=== PATIENT | female | born 1990 | race Hispanic/Latino ===

== ENCOUNTER 2021-10-21 22:16 | Emergency (ER) | payer OTHER ==
[~2021-10-21] VITALS: Ht 149.9 cm; Wt 72.1 kg
[2021-10-22 00:32] LABS: APPEARANCE,URINE Clear (CLEAR); BILIRUBIN,URINE Negative (NEGATIVE); COLOR,URINE Yellow (YELLOW); GLUCOSE, URINE (UA) Negative (NEGATIVE); KETONES,URINE Negative (NEGATIVE); LEUKOCYTE ESTERASE ,URINE Trace (NEGATIVE); NITRATE,URINE Negative (NEGATIVE); OCCULT BLOOD,URINE Negative (NEGATIVE); PROTEIN,URINE Negative (NEGATIVE)
[2021-10-22 00:36] LABS: BACTERIA,URINE Rare /HPF (None Seen); MUCUS,URINE Many LPF (None Seen); RBC,URINE None Seen /HPF (0-1); SQUAMOUS EPITHELIAL CELL,UR Moderate /HPF (0-2); WBC,URINE None Seen /HPF (0-1)
[2021-10-22 01:35] LABS: BASOPHILS % (AUTO) 0.4 % (0.0-5.0); EOSINOPHILS % (AUTO) 1.8 % (0.0-8.0); HEMATOCRIT 41.4 % (36-48); LYMPHOCYTES % (AUTO) 37.2 % (21.0-51.0); MEAN CORPUSCULAR HEMOGLOBIN 32.1 pg (27.0-33.0); MEAN CORPUSCULAR HGB CONC 34.5 g/dL (32.0-36.0); MONOCYTES % (AUTO) 6.3 % (3.0-13.0); NEUTROPHILS % (AUTO) 53.9 % (40.0-77.0); PLATELET COUNT (AUTO) 313 K/uL (130-400); RED BLOOD CELL COUNT(AUTO) 4.45 MIL/uL (4.00-5.50); RED CELL DISTRIBUTION WIDTH 11.9 % (11.0-15.5); WHITE BLOOD COUNT (AUTO) 10.3 K/uL (4.8-10.8)
[2021-10-22 01:45] LABS: CREATININE 0.7 mg/dL (0.5-1.5); POTASSIUM 3.6 mmol/L (3.5-5.1)
[2021-10-22 03:02] VITALS: BP 147/85
== END 2021-10-22 03:03 | disposition home or self-care (01) ==
LOC: EDH 22:16
DX: F41.9 Anxiety disorder, unspecified (principal); R07.89 Other chest pain; R11.0 Nausea
CPT/HCPCS: 36415; 80048; 81001; 81025; 82550; 84484; 85025; 93005

== ENCOUNTER 2025-04-12 16:13 | Inpatient (IN) | payer SELFPAY ==
[~2025-04-12] VITALS: Ht 149.9 cm; Wt 73.2 kg
[2025-04-12 17:02] LABS: IMMATURE GRANULOCYTE ABSOLUTE 0.07 K/uL (0-1); NUCLEATED RED BLOOD CELLS 0.0 % (0.0-0.19); PLATELET COUNT (AUTO) 258 K/uL (130-400); RED BLOOD CELL COUNT(AUTO) 4.02 MIL/uL (4.00-5.50); RED CELL DISTRIBUTION WIDTH 12.2 % (11.0-15.5); WHITE BLOOD COUNT (AUTO) 15.5 K/uL (4.8-10.8)
[2025-04-12] MEDS: 0.9%NACL 1000ML 2,178 ML IV SCH (17:04)
[2025-04-12 17:14] LABS: CREATININE 0.5 mg/dL (0.5-1.0); GLOMERULAR FILTR. RATE CALC 125.0 mL/min (>90); GLUCOSE,RANDOM 95.0 mg/dL (70-105); SODIUM SERUM 138.0 mmol/L (136-145); UREA NITROGEN, BLOOD 11.0 mg/dL (7-18)
[2025-04-12 17:26] LABS: CREATINE KINASE, TOTAL 69.0 U/L (21-232); HCG,QUANTITATIVE 0.0 mIU/mL (0-5)
[2025-04-12 18:45] LABS: APPEARANCE,URINE CLEAR (CLEAR); GLUCOSE, URINE (UA) NEGATIVE (NEGATIVE); LEUKOCYTE ESTERASE ,URINE NEGATIVE Leu/uL (NEGATIVE); NITRATE,URINE NEGATIVE (NEGATIVE); OCCULT BLOOD,URINE +- (TRACE) (NEGATIVE)
[2025-04-12 18:47] LABS: ADD UA MICROSCOPIC YES
[2025-04-12 18:52] LABS: SQUAMOUS EPITHELIAL CELL,UR MOD /HPF (0-2)
[2025-04-12 19:16] VITALS: TEMP 99
--- NOTE | 2025-04-12 20:48 | ERN ---
ED Note History of Present Illness Stated Complaint: BLOOD IN URINE,MULTIPLE Chief Complaint: Blood in Urine: Time Seen by MD: 16:28 Time Seen by Midlevel: 16:30 Dictation: 34-year-old female with a history of diabetes coming in with complaints of left lower quadrant pain onset for two days. Patient states he also has bilateral lower back pain, fever, nausea and vomiting. LMP is 04/05/2025. Allergies: Coded Allergies: No Known Drug Allergies (Unverified Allergy, Unknown, 10/21/21) Home Meds No Active Prescriptions or Reported Meds Past Medical History Past Medical History: No Pertinent History Surgical History: None Social History: ETOH Review of System Dictation Constitutional: Negative for fever,chills, and weight loss Eyes: Negative for injury, pain,redness, and discharge ENT: Negative for injury,pain or swelling Cardiovascular: Negative for chest pain, palpitations, and edema Respiratory: Negative for shortness of breath, cough, and wheezing, Abdomen/GI: Complaining of left lower quadrant pain with nausea and vomiting Back: Negative for injury and pain : Negative for injury, bleeding and discharge MS/Extremity: Negative for injury and deformity Skin: Negative for rash, and discoloration Neuro: Negative for headache, weakness, numbness, tingling, and seizure Psych: Negative for suicide ideation, homicidal ideation, and hallucinations Review of Systems: was completed Initial Vital Sign VS Vital Signs Date Time Temp Pulse Resp B/P (MAP) Pulse Ox O2 Delivery O2 Flow Rate FiO2 04/12/25 16:21 100.6 145 20 140/80 99 Room Air 0 04/12/25 18:53 21 Physical Exam Dictation General: awake, alert, NAD Head/Face: Normocephalic, atraumatic Eyes: PERRL, EOMI, vision at baseline ENT: oral cavity clear, TMs clear, no signs of infection Neck: Trachea midline, supple, no nuchal rigidity Cardiovascular: RRR, normal S1/S2, No MRGs, no JVD Respiratory: CTAB, no respiratory distress, No rales or wheezes Abdomen: Soft, mild left lower quadrant pain on palpation, non-distended, normal bowel sounds, no guarding or rebound. Skin: Warm, dry, normal turgor, no rash MS/Extremity: Pulses equal, no cyanosis, neurovascular intact, FROM Neuro: COAx4, GCS 15, strength 5/5, CN 2-12 intact, normal cerebellar exam, normal gait, Psych: Normal behavior, mood, and affect normal Pelvic exam done. There is scant amount of blood in the vaginal canal, no pain, did a bimanual, no chandelier sign. No pain on palpating bilateral ovaries. Patient states she is aware that she has of fibroids uterus Results (Laboratory/Radiology) Laboratory/Radiology Laboratory Tests Test 04/12/25 16:50 04/12/25 18:17 White Blood Count 15.5 K/uL (4.8-10.8) H Red Blood Count 4.02 MIL/uL (4.00-5.50) Hemoglobin 13.2 g/dL (12.0-16.0) Hematocrit 37.2 % (36-48) Mean Corpuscular Volume 92.5 fL (79-99) Mean Corpuscular Hemoglobin 32.8 pg (27.0-33.0) Mean Corpuscular Hemoglobin Concent 35.5 g/dL (32.0-36.0) Red Cell Distribution Width 12.2 % (11.0-15.5) Platelet Count 258 K/uL (130-400) Mean Platelet Volume 11.1 fL (7.5-10.5) H Immature Granulocyte % (Auto) 0.5 % (0-1) Neutrophils (%) (Auto) 76.2 % (40.0-77.0) Lymphocytes (%) (Auto) 13.4 % (21.0-51.0) L Monocytes (%) (Auto) 8.9 % (3.0-13.0) Eosinophils (%) (Auto) 0.8 % (0.0-8.0) Basophils (%) (Auto) 0.2 % (0.0-5.0) Neutrophils # (Auto) 11.8 K/uL (1.8-7.7) H Lymphocytes # (Auto) 2.1 K/uL (1.0-4.8) Monocytes # (Auto) 1.4 K/uL (0.1-1.0) H Eosinophils # (Auto) 0.12 K/uL (0.00-0.70) Basophils # (Auto) 0.03 K/uL (0.00-0.20) Absolute Immature Granulocyte (auto 0.07 K/uL (0-1) Nucleated Red Blood Cells 0.0 % (0.0-0.19) Sodium Level 138 mmol/L (136-145) Potassium Level 3.6 mmol/L (3.5-5.1) Chloride Level 101 mmol/L (101-111) Carbon Dioxide Level 23 mmol/L (21-32) Blood Urea Nitrogen 11 mg/dL (7-18) Creatinine 0.5 mg/dL (0.5-1.0) Glomerular Filtration Rate Calc 125 mL/min (>90) Random Glucose 95 mg/dL (70-105) Lactic Acid Level 1.7 mmol/L (0.8-2.5) Total Calcium 9.4 mg/dL (8.5-10.1) Total Creatine Kinase 69 U/L (21-232) # Troponin I High Sensitivity < 4 ng/L (4-50) L Thyroid Stimulating Hormone (TSH) 1.34 uIU/mL (0.36-3.74) Human Chorionic Gonadotropin, Quant 0 mIU/mL (0-5) Urine Color LIGHT-YELLOW (YELLOW) Urine Appearance CLEAR (CLEAR) Urine pH 6.0 (5.0-8.0) Urine Specific [place] 1.011 (1.001-1.031) Urine Protein 10 mg/dL (NEGATIVE) H Urine Glucose (UA) NEGATIVE mg/dL (NEGATIVE) Urine Ketones 40 mg/dL (NEGATIVE) H Urine Occult Blood +- (TRACE) (NEGATIVE) H Urine Nitrate NEGATIVE (NEGATIVE) Urine Bilirubin NEGATIVE mg/dL (NEGATIVE) Urine Urobilinogen 0.2 mg/dL (0.2-1.0) Urine Leukocyte Esterase NEGATIVE [place]/uL Urine RBC 0-1 /HPF (0-1) Urine WBC 0-1 /HPF (0-1) Urine Squamous Epithelial Cells MOD /HPF (0-2) Urine Bacteria None /HPF (None Seen) Labs Reviewed?: Yes EKG Comment: EKGs done at 4:33 p.m.. Sinus tachycardia 139. No STEMI interpreted by ER MD. ED Course ED Course Orders Procedure Category Date Status Time Cbc With Differential LAB 04/12/25 Complete 16:28 Blood Cult [facility] 04/12/25 In Process 16:28 Urinalysis Profile LAB 04/12/25 Complete 16:28 Culture Urine [facility] 04/12/25 In Process 16:28 0.9%Nacl 1000ml (Ns PHA 7/11/25 In Process 1000ml) 16:30 Creatine Kinase, Total LAB 04/12/25 Complete 16:28 Troponin I High LAB 04/12/25 Complete Sensitivity 16:28 Lactic Acid LAB 04/12/25 Complete 16:28 Basic Metabolic Panel LAB 04/12/25 Complete 16:28 Ceftriaxone 1g Vial PHA 04/12/25 Complete (Rocephine 1g Inj) 16:28 Hcg,Quantitative LAB 04/12/25 Complete 16:28 Acetaminophen 500mg PHA 04/12/25 Complete Tab (Tylenol 500mg T 16:28 Ct Abdomen/Pelvis W/O CT 04/12/25 Taken Contrast 16:28 Thyroid Stimulating LAB 04/12/25 Complete Hormone 20:49 Current Medications Medications (Trade) Dose Ordered Sig/Chris Route PRN Reason Start Time Stop Time Status Last Admin Dose Admin Acetaminophen (TYLenol 500MG TAB) 500 mg ONCE PO 04/12/25 16:28 04/12/25 20:30 DC 04/12/25 17:05 Ceftriaxone Sodium (ROCEphine 1G INJ) 1 gm ONCE IVPB 04/12/25 16:28 04/12/25 20:30 DC 04/12/25 17:05 Sodium Chloride 2,178 ml @ 726 mls/hr ONCE IV 04/12/25 16:30 04/13/25 16:29 04/12/25 17:04 Vital Signs Date Time Temp Pulse Resp B/P (MAP) Pulse Ox O2 Delivery O2 Flow Rate FiO2 04/12/25 20:40 99.1 120 18 114/66 100 Room Air* 0 21 04/12/25 18:53 99.0 120 18 122/65 99 Room Air* 0 21 04/12/25 17:05 100.6 04/12/25 16:21 100.6 145 20 140/80 99 Room Air 0 Medical Decision Making MDM MDM: 34-year-old female with a history of diabetes coming in with complaints of left lower quadrant pain onset for two days. Patient states he also has bilateral lower back pain, fever, nausea and vomiting. LMP is 04/05/2025. Septic protocol initiated. Fluids and antibiotics given. Patient has a white count 915[address], no anemia, no thrombocytopenia. Chemistry unremarkable. UA shows no evidence of urinary tract infection. CT scan shows no acute findings other than a bulky uterus with fibroids. Patient states she is aware of having fibroids in her uterus. Despite fluids and antibiotics and Tylenol patient is is tachycardic, states pain has a little better. Patient will be admitted for sepsis of unknown origin. Spoke to JUAN A Dupont. Okay to admit. Differential diagnosis: Sepsis, diverticulitis, urinary tract infection. Rationale: Tests considered and ordered secondary to shared decision making include: labs, ECG and radiology Previous outside records reviewed: Old ER visits. Risk of complication and/or morbidity or mortality of patient management: None Medications-Per medication reconciliation Need for hospitalization: Patient does meet criteria for hospitalization. Need for emergency major/minor surgery: No There are no social concerns with this patient. Prescription drug management Prescriptions will include symptomatic care Patient's prior external medical records from other ER visits were reviewed by me as indicated. Prior testing and results from previous visits were reviewed. Prior tests were taken into account with medical decision making and resource utilization, independent historian/historians were used to obtain complete medical history. I independently interpreted the test that were performed, results were reviewed by me and considered findings on radiology if ordered. Medical management and examination interpretation discussions were had by me with other qualified healthcare professionals as indicated for the patient's care. DX & DISP Disposition: Inpatient Decision to Admit Date: Apr 12, 2025 Departure Impression: Primary Impression: Sepsis, unspecified organism Additional Impression: Intractable abdominal pain Condition: Stable Scripts No Active Prescriptions or Reported Meds Referrals: SELF,REFERRAL (PCP) Time of Disposition: 21:34 I have reviewed the case, and I agree with, Diagnosis and Plan RADHA RODARTE NP Apr 12, 2025 20:48
--- NOTE | 2025-04-12 21:29 | HP ---
[facility] PHYS[facility] Date of Service: Apr 12, 2025 Time of Service: 21:29 PCP:Self Referral HISTORY OF PRESENT ILLNESS: This is a 34 year old female with no pertinent medical history who presents to the ED for complaints of left lower quadrant abdominal pain and pain radiates to the lower back which started 3 days ago.Patient reports she had a fever and chills yesterday T102.8 and has some nausea but no vomiting.Patient also reports blood in the urine .Her LMP &/$/2024 and it usually lasted for 7 days.Patient reports she has a nomal bowel movement today.Patient reports this is the first time she experience this symptoms.? was at bedside during my evaluation. Seen and examined patient in the ER awake,alert and coherent ,appears uncomfortable ,complained of 6-7/10 pain level.Patient denies vomiting,chest pain,palpitation,cough ,shortness of breath and diarrhea.V/S T98.6,HR127,BP 126/68 BP 126/68 Sat 100% RA.Labs : WBC15 ,Hgb 13,Hct 37 Platelet 258.Chemistry is normal .urine toxicology is negative .CT abdomen and pelvis result is still pending at this time.While in the ER patient received Tylenol 500 mg po ,IVF resuscitation of NS 30ml/kg over 3 hrs Rocephin 1 gram IV ,Morphine 2mg IV and Zofran 4 mg IV .Will admit patient for further medical management. REVIEW OF SYSTEMS CONSTITUTIONAL: Denies fevers, chills, or night sweats. No unintentional weight loss reported. NEUROLOGICAL: Denies headache, amaurosis fugax, motor weakness, sensory deficit, vertigo/spinning sensation, gait abnormalities, or tremors. ENT: No hearing loss, otalgia, otorrhea, rhinitis, rhinorrhea, hoarseness, or sore throat. CARDIOVASCULAR: Denies any exertional angina, dyspnea on exertion, orthopnea, paroxysmal nocturnal dyspnea, palpitations, life-threatening arrhythmias, claudication. PULMONARY: Denies any shortness of breath, cough, phlegm/sputum, hemoptysis, pleuritic chest pain. SLEEP: Denies morning headaches, daytime somnolence or napping. Denies difficulty falling asleep, staying asleep, waking from sleep. Denies knowledge of snoring. GASTROINTESTINAL: Denies any type of dysphagia to either liquids or solids. Denies nausea, vomiting, pyrosis, early satiety, abdominal pain, diarrhea, constipation, or changes in stool consistency or caliber. Denies coffee-ground emesis, hematemesis, hematochezia, or melanotic stools. GENITOURINARY: Denies frequency, urgency, nocturia, hematuria or incontinence (Storage/Irritative symptoms.) Low urinary stream, straining to void, urinary intermittency or hesitancy, splitting of the voiding stream, terminal dribbling. ENDOCRINOLOGIC: Denies polyuria, polydipsia, polyphagia or heat/cold intolerances. HEMATOLOGIC: Denies thrombophilia/previous clots, or coagulopathy/bleeding disorders. ONCOLOGIC: Denies personal history of malignancy. DERMATOLOGIC: Denies rashes or pruritus. PSYCHIATRIC: Denies any suicidal or homicidal ideation. Denies hallucinations. PAST MEDICAL HISTORY: [ Patient denies ] PAST SURGICAL HISTORY: [ Patient denies ] PAST SOCIAL HISTORY: [ Patient lives with .Patient denies alcohol,cigarette and recreational drug use ] FAMILY HISTORY: [ Noncontributory] Coded Allergies: No Known Drug Allergies (Unverified Allergy, Unknown, 10/21/21) PHYSICAL EXAM GENERAL APPEARANCE: The patient is awake, alert, and oriented, in no acute cardiopulmonary distress. NEUROLOGICAL: Cranial nerves II-XII grossly intact. Motor is 5/5 in bilateral upper and lower extremities proximal to distal. No sensory deficits. HEENT: Face is symmetric. Pupils are equal and reactive. Extraocular movements are intact. NECK: Supple. No JVD. No thyromegaly. No submental, submandibular, pre-/postauricular, occipital or supraclavicular lymphadenopathy. CHEST: Normal chest expansion. No Telemetry. LUNGS: Absence of any rales, rhonchi or any wheezing. CARDIOVASCULAR: Regular. S1 and S2 normal. No appreciable rubs, murmurs or gallops. ABDOMEN: left lower quadrant tenderness Soft and nondistended. There is no rebound, voluntary guarding, or rigidity. : Deferred. No Jones. EXTREMITIES: Non-edematous and not cyanotic. No clubbing. Good capillary refill. SKIN: No skin breakdown. Vital Sign (Last 24 Hours) 04/12/25 20:40 Temp 99.1 Pulse 120 Resp 18 B/P (MAP) 114/66 Pulse Ox 100 O2 Delivery Room Air* O2 Flow Rate 0 FiO2 21 LABS: Laboratory: Test 04/12/25 18:17 04/12/25 16:50 Range/Units Urine Color LIGHT-YELLOW YELLOW Urine Appearance CLEAR CLEAR Urine pH 6.0 5.0-8.0 Urine Specific [place] 1.011 1.001-1.031 Urine Protein 10 H NEGATIVE mg/dL Urine Glucose (UA) NEGATIVE NEGATIVE mg/dL Urine Ketones 40 H NEGATIVE mg/dL Urine Occult Blood +- (TRACE) H NEGATIVE Urine Nitrate NEGATIVE NEGATIVE Urine Bilirubin NEGATIVE NEGATIVE mg/dL Urine Urobilinogen 0.2 0.2-1.0 mg/dL Urine Leukocyte Esterase NEGATIVE NEGATIVE Wy[place]/uL Urine RBC 0-1 0-1 /HPF Urine WBC 0-1 0-1 /HPF Urine Squamous Epithelial Cells MOD 0-2 /HPF Urine Bacteria None None Seen /HPF White Blood Count 15.5 H 4.8-10.8 K/uL Red Blood Count 4.02 4.00-5.50 MIL/uL Hemoglobin 13.2 12.0-16.0 g/dL Hematocrit 37.2 36-48 % Mean Corpuscular Volume 92.5 79-99 fL Mean Corpuscular Hemoglobin 32.8 27.0-33.0 pg Mean Corpuscular Hemoglobin Concent 35.5 32.0-36.0 g/dL Red Cell Distribution Width 12.2 11.0-15.5 % Platelet Count 258 130-400 K/uL Mean Platelet Volume 11.1 H 7.5-10.5 fL Immature Granulocyte % (Auto) 0.5 0-1 % Neutrophils (%) (Auto) 76.2 40.0-77.0 % Lymphocytes (%) (Auto) 13.4 L 21.0-51.0 % Monocytes (%) (Auto) 8.9 3.0-13.0 % Eosinophils (%) (Auto) 0.8 0.0-8.0 % Basophils (%) (Auto) 0.2 0.0-5.0 % Neutrophils # (Auto) 11.8 H 1.8-7.7 K/uL Lymphocytes # (Auto) 2.1 1.0-4.8 K/uL Monocytes # (Auto) 1.4 H 0.1-1.0 K/uL Eosinophils # (Auto) 0.12 0.00-0.70 K/uL Basophils # (Auto) 0.03 0.00-0.20 K/uL Absolute Immature Granulocyte (auto 0.07 0-1 K/uL Nucleated Red Blood Cells 0.0 0.0-0.19 % Sodium Level 138 136-145 mmol/L Potassium Level 3.6 3.5-5.1 mmol/L Chloride Level 101 101-111 mmol/L Carbon Dioxide Level 23 21-32 mmol/L Blood Urea Nitrogen 11 7-18 mg/dL Creatinine 0.5 0.5-1.0 mg/dL Glomerular Filtration Rate Calc 125 >90 mL/min Random Glucose 95 70-105 mg/dL Lactic Acid Level 1.7 0.8-2.5 mmol/L Total Calcium 9.4 8.5-10.1 mg/dL Total Creatine Kinase 69 # 21-232 U/L Troponin I High Sensitivity < 4 L 4-50 ng/L Thyroid Stimulating Hormone (TSH) 1.34 0.36-3.74 uIU/mL Human Chorionic Gonadotropin, Quant 0 0-5 mIU/mL Current Medications Medications (Trade) Dose Ordered Sig/Chris Route PRN Reason Start Time Stop Time Status Last Admin Dose Admin Acetaminophen (TYLenol 500MG TAB) 500 mg ONCE PO 04/12/25 16:28 04/12/25 20:30 DC 04/12/25 17:05 500 MG Ceftriaxone Sodium (ROCEphine 1G INJ) 1 gm ONCE IVPB 04/12/25 16:28 04/12/25 20:30 DC 04/12/25 17:05 1 GM Sodium Chloride 2,178 ml @ 726 mls/hr ONCE IV 04/12/25 16:30 04/13/25 16:29 04/12/25 17:04 726 MLS/HR DIAGNOSTICS / RADIOLOGY: [ ] ASSESSMENT: SIRS with Organ dysfunction POA Intractable abdominal pain POA Obesity POA PLAN: We will admit patient in medical Telemetry floor Will keep nothing by mouth Will start on NS @100ml/hr while on NPO status Will start on Rocephin 1 gram IV daily for empiric coverage Will start on Protonix 40 mg IV daily for GI prophylaxis Will replace electrolyte as needed per protocol Will add prn medication,for pain,fever,nausea and vomiting Will check labs in am Will follow up urine culture results and CT results Further recommendations to follow depending upon hospitalization course Case discussed with attending MD and came up with above treatment and plan of care ADVANCED CARE PLANNING 1. Which of the following were discussed? Hospice Care - No Therapeutic options - Yes Advance Directives - No Other discussions - 2. Discussed with who? Patient 3. Voluntary nature of this service was explained to the patient? Yes 4. Amount of time spent - __20 min 5. Reviewed by Physician? (if this service was performed by NPP) Yes Patient seen and examined by me. Agree with note by NURSE INFORMATICIST SEE ADDITIONAL ORDERS PER CHART DISCUSSED WITH NURSING STAFF BELTRAN [employer] INSPECTOR Apr 12, 2025 21:29
[2025-04-12] MEDS: 0.9%NACL 1000ML 1,000 ML IV SCH (22:32)
[2025-04-12 23:28] VITALS: O2SAT 94
[2025-04-12 23:30] VITALS: BP 136/69; PULSE 138; RESP 20; TEMP 98.5
[2025-04-12 23:54] LABS: AMPHET/METH SCREEN,URINE NEGATIVE (NEGATIVE); BARBITURATE SCREEN, URINE NEGATIVE (NEGATIVE); CANNABINOID SCREEN,URINE NEGATIVE (NEGATIVE); COCAINE SCREEN,URINE NEGATIVE (NEGATIVE)
[2025-04-13] VITALS (7 sets, daily range): BP systolic 110–135; BP diastolic 50–83; PULSE 101–109; RESP 18–20; TEMP 98.6–99.9; O2SAT 97–100
[2025-04-13 06:40] LABS: IMMATURE GRANULOCYTE ABSOLUTE 0.05 K/uL (0-1); NUCLEATED RED BLOOD CELLS 0.0 % (0.0-0.19); PLATELET COUNT (AUTO) 226 K/uL (130-400); RED BLOOD CELL COUNT(AUTO) 3.49 MIL/uL (4.00-5.50); RED CELL DISTRIBUTION WIDTH 12.2 % (11.0-15.5); WHITE BLOOD COUNT (AUTO) 13.2 K/uL (4.8-10.8)
--- NOTE | 2025-04-13 07:42 | PN ---
[facility] PROGRESS NOTE Date of Service: Apr 13, 2025 Time of Service: 07:37 SUBJECTIVE: [ ] This is a 34 year old female with no pertinent medical history who presents to the ED for complaints of left lower quadrant abdominal pain and pain radiates to the lower back which started 3 days ago.Patient reports she had a fever and chills yesterday T102.8 and has some nausea but no vomiting.Patient also reports blood in the urine .Her LMP &/$/2024 and it usually lasted for 7 days.Patient reports she has a normal bowel movement today.Patient reports this is the first time she experience this symptoms. 04/13/25 patient was seen she is fully awake alert oriented x3. patient continues with suprapubic abdominal pain. Waiting for CT scan we will have primary nurse to call radiology's to fax results. Patient becomes tachycardia when out of bed to chair she does have a history of tachycardia three years ago she had cardiac workup done. She denies chest pain shortness for breath palpitations. Troponin was negative. We will start her beta-hi Fax results reproductive bulky uterus with multiple fibroids no kidney stones no hydronephrosis no focal inflammatory process gallbladder appears within normal limits otherwise CT abdomen normal. Most likely she will need to follow-up with a homemaker companion upon discharge. REVIEW OF SYSTEMS CONSTITUTIONAL: Denies fevers, chills, or night sweats. No unintentional weight loss reported. NEUROLOGICAL: Denies headache, amaurosis fugax, motor weakness, sensory deficit, vertigo/spinning sensation, gait abnormalities, or tremors. ENT: No hearing loss, otalgia, otorrhea, rhinitis, rhinorrhea, hoarseness, or sore throat. CARDIOVASCULAR: Denies any exertional angina, dyspnea on exertion, orthopnea, paroxysmal nocturnal dyspnea, palpitations, life-threatening arrhythmias, claudication. PULMONARY: Denies any shortness of breath, cough, phlegm/sputum, hemoptysis, pleuritic chest pain. SLEEP: Denies morning headaches, daytime somnolence or napping. Denies d ifficulty falling asleep, staying asleep, waking from sleep. Denies knowledge of snoring. GASTROINTESTINAL: Denies any type of dysphagia to either liquids or solids. Denies nausea, vomiting, pyrosis, early satiety, abdominal pain, diarrhea, constipation, or changes in stool consistency or caliber. Denies coffee-ground emesis, hematemesis, hematochezia, or melanotic stools. GENITOURINARY: Denies frequency, urgency, nocturia, hematuria or incontinence (Storage/Irritative symptoms.) Low urinary stream, straining to void, urinary intermittency or hesitancy, splitting of the voiding stream, terminal dribbling. ENDOCRINOLOGIC: Denies polyuria, polydipsia, polyphagia or heat/cold intolerances. HEMATOLOGIC: Denies thrombophilia/previous clots, or coagulopathy/bleeding disorders. ONCOLOGIC: Denies personal history of malignancy. DERMATOLOGIC: Denies rashes or pruritus. PSYCHIATRIC: Denies any suicidal or homicidal ideation. Denies hallucinations. PHYSICAL EXAM GENERAL APPEARANCE: The patient is awake, alert, and oriented, in no acute cardiopulmonary distress. NEUROLOGICAL: Cranial nerves II-XII grossly intact. Motor is 5/5 in bilateral upper and lower extremities proximal to distal. No sensory deficits. HEENT: Face is symmetric. Pupils are equal and reactive. Extraocular movements are intact. NECK: Supple. No JVD. No thyromegaly. No submental, submandibular, pre- /postauricular, occipital or supraclavicular lymphadenopathy. CHEST: Normal chest expansion. No Telemetry. LUNGS: Absence of any rales, rhonchi or any wheezing. CARDIOVASCULAR: Regular. S1 and S2 normal. No appreciable rubs, murmurs or gallops. ABDOMEN: left lower quadrant tenderness Soft and nondistended. There is no rebound, voluntary guarding, or rigidity. : Deferred. No Jones. EXTREMITIES: Non-edematous and not cyanotic. No clubbing. Good capillary refill. SKIN: No skin breakdown. Vital Signs (last 8hr) Date Time Temp Pulse Resp B/P (MAP) Pulse Ox O2 Delivery O2 Flow Rate FiO2 04/13/25 04:30 99.0 102 20 110/68 96 Room Air LABS: Laboratory: Test 04/13/25 06:33 04/12/25 18:17 04/12/25 16:50 Range/Units White Blood Count 13.2 H 4.8-10.8 K/uL Red Blood Count 3.49 L 4.00-5.50 MIL/uL Hemoglobin 11.5 L 12.0-16.0 g/dL Hematocrit 33.6 L 36-48 % Mean Corpuscular Volume 96.3 79-99 fL Mean Corpuscular Hemoglobin 33.0 27.0-33.0 pg Mean Corpuscular Hemoglobin Concent 34.2 32.0-36.0 g/dL Red Cell Distribution Width 12.2 11.0-15.5 % Platelet Count 226 130-400 K/uL Mean Platelet Volume 10.7 H 7.5-10.5 fL Immature Granulocyte % (Auto) 0.4 0-1 % Neutrophils (%) (Auto) 71.8 40.0-77.0 % Lymphocytes (%) (Auto) 18.5 L 21.0-51.0 % Monocytes (%) (Auto) 8.5 3.0-13.0 % Eosinophils (%) (Auto) 0.5 0.0-8.0 % Basophils (%) (Auto) 0.3 0.0-5.0 % Neutrophils # (Auto) 9.5 H 1.8-7.7 K/uL Lymphocytes # (Auto) 2.4 1.0-4.8 K/uL Monocytes # (Auto) 1.1 H 0.1-1.0 K/uL Eosinophils # (Auto) 0.07 0.00-0.70 K/uL Basophils # (Auto) 0.04 0.00-0.20 K/uL Absolute Immature Granulocyte (auto 0.05 0-1 K/uL Nucleated Red Blood Cells 0.0 0.0-0.19 % Procalcitonin < 0.05 L 0.05-0.5 ng/mL Urine Color LIGHT-YELLOW YELLOW Urine Appearance CLEAR CLEAR Urine pH 6.0 5.0-8.0 Urine Specific [place] 1.011 1.001-1.031 Urine Protein 10 H NEGATIVE mg/dL Urine Glucose (UA) NEGATIVE NEGATIVE mg/dL Urine Ketones 40 H NEGATIVE mg/dL Urine Occult Blood +- (TRACE) H NEGATIVE Urine Nitrate NEGATIVE NEGATIVE Urine Bilirubin NEGATIVE NEGATIVE mg/dL Urine Urobilinogen 0.2 0.2-1.0 mg/dL Urine Leukocyte Esterase NEGATIVE NEGATIVE Wyatt/uL Urine RBC 0-1 0-1 /HPF Urine WBC 0-1 0-1 /HPF Urine Squamous Epithelial Cells MOD 0-2 /HPF Urine Bacteria None None Seen /HPF Urine Opiates Screen NEGATIVE NEGATIVE Urine Barbiturates Screen NEGATIVE NEGATIVE Urine Phencyclidine Screen NEGATIVE NEGATIVE Urine Amphetamines Screen NEGATIVE NEGATIVE Urine Benzodiazepines Screen NEGATIVE NEGATIVE Urine Cocaine Screen NEGATIVE NEGATIVE Urine Marijuana (THC) Screen NEGATIVE NEGATIVE Sodium Level 138 136-145 mmol/L Potassium Level 3.6 3.5-5.1 mmol/L Chloride Level 101 101-111 mmol/L Carbon Dioxide Level 23 21-32 mmol/L Blood Urea Nitrogen 11 7-18 mg/dL Creatinine 0.5 0.5-1.0 mg/dL Glomerular Filtration Rate Calc 125 >90 mL/min Random Glucose 95 70-105 mg/dL Lactic Acid Level 1.7 0.8-2.5 mmol/L Total Calcium 9.4 8.5-10.1 mg/dL Total Creatine Kinase 69 # 21-232 U/L Troponin I High Sensitivity < 4 L 4-50 ng/L Thyroid Stimulating Hormone (TSH) 1.34 0.36-3.74 uIU/mL Human Chorionic Gonadotropin, Quant 0 0-5 mIU/mL Current Medications Medications (Trade) Dose Ordered Sig/Chris Route PRN Reason Start Time Stop Time Status Last Admin Dose Admin Acetaminophen (TYLenol 500MG TAB) 500 mg ONCE PO 04/12/25 16:28 04/12/25 20:30 DC 04/12/25 17:05 500 MG Ceftriaxone Sodium 1 gm/ Sodium Chloride 50 ml @ 100 mls/hr Q24H IV 04/12/25 22:30 04/12/25 22:29 DC Ceftriaxone Sodium (ROCEphine 1G INJ) 1 gm DAILY IVPB 04/13/25 09:00 04/23/25 08:59 Ceftriaxone Sodium (ROCEphine 1G INJ) 1 gm ONCE IVPB 04/12/25 16:28 04/12/25 20:30 DC 04/12/25 17:05 1 GM Ketorolac Tromethamine (toRADol) 15 mg Q6H PRN IV MODERATE PAIN (4-6) 04/13/25 01:30 04/18/25 01:29 04/13/25 01:32 15 MG Morphine Sulfate (morPHINE 2MG SYG) 2 mg ONCE STAT IVP 04/12/25 21:53 04/12/25 21:56 DC 04/12/25 22:15 2 MG Morphine Sulfate (morPHINE 2MG SYG) 2 mg Q4H PRN IV PAIN LEVEL 7 TO 10 04/12/25 22:30 04/19/25 22:29 Ondansetron HCl (zoFRAN 4MG INJ) 4 mg ONCE STAT IVP 04/12/25 21:53 04/12/25 21:56 DC 04/12/25 22:15 4 MG Ondansetron HCl (zoFRAN 4MG INJ) 4 mg Q6H PRN IV NAUSEA/VOMITING 04/12/25 22:30 05/12/25 22:29 Pantoprazole Sodium (PROTonix 40MG INJ) 40 mg DAILY IVP 04/13/25 09:00 05/13/25 08:59 Sodium Chloride 1,000 ml @ 100 mls/hr Q10H IV 04/12/25 22:30 05/12/25 22:29 04/12/25 22:32 100 MLS/HR Sodium Chloride 2,178 ml @ 726 mls/hr ONCE IV 04/12/25 16:30 04/13/25 16:29 04/12/25 17:04 726 MLS/HR DIAGNOSTICS / RADIOLOGY: [ ] ASSESSMENT: SIRS with Organ dysfunction POA Intractable abdominal pain POA Obesity POA Bulky uterus with multiple fibroids evidenced by CT abdomen POA Tachycardia POA PLAN: Admit: medical Telemetry floor Diet: nothing by mouth IVF: 75 mL/hour normal saline Antibiotics: Rocephin 1 gram IV daily for empiric coverage: WBC trending down microbiology: will follow up Urine culture in process so far no growth blood cultures no growth Imaging: CT abd pending results noted Protonix 40 mg IV daily for GI prophylaxis replace electrolyte as needed per protocol Tachycardia 2D echo, beta-hi metoprolol b.i.d. 25mg Pain management: Toradol as needed Further recommendations to follow depending upon hospitalization course Case discussed with attending MD and came up with above treatment and plan of care ATTESTATION BY PHYSICIAN I have seen and examined the patient. I reviewed the documentation, medical decision making, and treatment plan as noted by the mid-level provider above. I agree with the findings and plan of care. AMY LAM MD, ELIZABETH NP Apr 13, 2025 07:42
[2025-04-13] MEDS ORDERED: MAGNESIUM 2GM PREMIX 50ML 50 ML IV PRN (08:00)
[2025-04-13 08:01] LABS: ASPARTATE AMINOTRANSFERASE 37.0 U/L (10-37); CREATININE 0.5 mg/dL (0.5-1.0); GLOMERULAR FILTR. RATE CALC 125.0 mL/min (>90); GLUCOSE,RANDOM 96.0 mg/dL (70-105); SODIUM SERUM 142.0 mmol/L (136-145); TOTAL PROTEIN, SERUM 7.0 g/dL (6.0-8.3); UREA NITROGEN, BLOOD 8.0 mg/dL (7-18)
[2025-04-13 08:50] LABS: ERYTHROCYTE SEDIMENTATION RATE 56 MM/HR (0-20)
--- NOTE | 2025-04-13 12:51 | EKG ---
[facility] Test Date: 2025-04-13 Test Time: 12:48:53 Pat Name: WEI MARIE Department: [facility] Room: 305 1 Gender: F Bander Hand: [id number] : 1990 Requested By: ABRBY CAMACHO Order Number: [id number] Reading MD: Cande Stark Measurements Intervals [place] Rate: 117 P: 52 [place]: 138 QRS: 41 QRSD: 84 T: 6 QT: 316 QTc: 440 Interpretive Statements Sinus tachycardia Cannot rule out Inferior infarct , age undetermined Compared to ECG 10/21/2021 21:48:04 Myocardial infarct finding now present Sinus rhythm no longer present Electronically Signed On 04-13-2025 13:24:22 CDT by Cande Stark Please click the below link to view image of tracing.
[2025-04-13] MEDS: PoTASSium chl 10% ELIXIR 20MEQ 20 MEQ/15 ML UDCUP PO PRN (16:23)
--- NOTE | 2025-04-13 19:51 | EKG ---
[facility] Test Date: 2025-04-12 Test Time: 16:33:57 Pat Name: WEI MARIE Department: [facility] Room: 305 1 Gender: F Materials Analyst: [id number] : 1990 Requested By: RADHA RODARTE Order Number: [id number] Reading MD: Dot Dick Measurements Intervals [place] Rate: 139 P: 58 [place]: 127 QRS: 79 QRSD: 81 T: 11 QT: 290 QTc: 441 Interpretive Statements Sinus tachycardia Compared to ECG 10/21/2021 21:48:04 Sinus rhythm no longer present Electronically Signed On 04-15-2025 15:26:44 CDT by Dot Dick Please click the below link to view image of tracing.
[2025-04-14 04:00] VITALS: BP 113/64; PULSE 84; RESP 18; TEMP 98
[2025-04-14 05:21] LABS: IMMATURE GRANULOCYTE ABSOLUTE 0.05 K/uL (0-1); NUCLEATED RED BLOOD CELLS 0.0 % (0.0-0.19); PLATELET COUNT (AUTO) 280 K/uL (130-400); RED BLOOD CELL COUNT(AUTO) 3.59 MIL/uL (4.00-5.50); RED CELL DISTRIBUTION WIDTH 12.1 % (11.0-15.5); WHITE BLOOD COUNT (AUTO) 11.5 K/uL (4.8-10.8)
[2025-04-14 05:50] LABS: ASPARTATE AMINOTRANSFERASE 45.0 U/L (10-37); CREATININE 0.6 mg/dL (0.5-1.0); GLOMERULAR FILTR. RATE CALC 119.0 mL/min (>90); GLUCOSE,RANDOM 87.0 mg/dL (70-105); LDL DIRECT 92.0 mg/dL (0-99); SODIUM SERUM 140.0 mmol/L (136-145); TOTAL PROTEIN, SERUM 7.4 g/dL (6.0-8.3); UREA NITROGEN, BLOOD 6.0 mg/dL (7-18)
[2025-04-14 08:00] VITALS: BP 119/65; PULSE 97; RESP 18; TEMP 98.7
[2025-04-14 08:57] VITALS: O2SAT 100
--- NOTE | 2025-04-14 10:08 | PN ---
[facility] PROGRESS NOTE Date of Service: Apr 14, 2025 Time of Service: 10:05 SUBJECTIVE: [ ] This is a 34 year old female with no pertinent medical history who presents to the ED for complaints of left lower quadrant abdominal pain and pain radiates to the lower back which started 3 days ago.Patient reports she had a fever and chills yesterday T102.8 and has some nausea but no vomiting.Patient also reports blood in the urine .Her LMP &/$/2024 and it usually lasted for 7 days.Patient reports she has a normal bowel movement today.Patient reports this is the first time she experience this symptoms. 04/13/25 patient was seen she is fully awake alert oriented x3. patient continues with suprapubic abdominal pain. Waiting for CT scan we will have primary nurse to call radiology's to fax results. Patient becomes tachycardia when out of bed to chair she does have a history of tachycardia three years ago she had cardiac workup done. She denies chest pain shortness for breath palpitations. Troponin was negative. We will start her beta-hi Fax results reproductive bulky uterus with multiple fibroids no kidney stones no hydronephrosis no focal inflammatory process gallbladder appears within normal limits otherwise CT abdomen normal. Most likely she will need to follow-up with a overhead crane inspector upon discharge. 04/14/2025. Patient was seen earlier patient is fully awake alert oriented x3. heart rate is well controlled now was started on beta-blockers. Urine cultures negative. Patient reports taking amoxicillin from home self medicated prior to this admission. Advised patient upon discharge she will need to follow-up with a overhead crane inspector she verbalized understanding ruled out prediabetic A1c 4.6. Continues with IV antibiotics REVIEW OF SYSTEMS CONSTITUTIONAL: Denies fevers, chills, or night sweats. No unintentional weight loss reported. NEUROLOGICAL: Denies headache, amaurosis fugax, motor weakness, sensory deficit, vertigo/spinning sensation, gait abnormalities, or tremors. ENT: No hearing loss, otalgia, otorrhea, rhinitis, rhinorrhea, hoarseness, or sore throat. CARDIOVASCULAR: Denies any exertional angina, dyspnea on exertion, orthopnea, paroxysmal nocturnal dyspnea, palpitations, life-threatening arrhythmias, claudication. PULMONARY: Denies any shortness of breath, cough, phlegm/sputum, hemoptysis, pleuritic chest pain. SLEEP: Denies morning headaches, daytime somnolence or napping. Denies difficulty falling asleep, staying asleep, waking from sleep. Denies knowledge of snoring. GASTROINTESTINAL: Denies any type of dysphagia to either liquids or solids. Denies nausea, vomiting, pyrosis, early satiety, abdominal pain, diarrhea, constipation, or changes in stool consistency or caliber. Denies coffee-ground emesis, hematemesis, hematochezia, or melanotic stools. GENITOURINARY: Denies frequency, urgency, nocturia, hematuria or incontinence (Storage/Irritative symptoms.) Low urinary stream, straining to void, urinary intermittency or hesitancy, splitting of the voiding stream, terminal dribbling. ENDOCRINOLOGIC: Denies polyuria, polydipsia, polyphagia or heat/cold intolerances. HEMATOLOGIC: Denies thrombophilia/previous clots, or coagulopathy/bleeding disorders. ONCOLOGIC: Denies personal history of malignancy. DERMATOLOGIC: Denies rashes or pruritus. PSYCHIATRIC: Denies any suicidal or homicidal ideation. Denies hallucinations. PHYSICAL EXAM GENERAL APPEARANCE: The patient is awake, alert, and oriented, in no acute cardiopulmonary distress. NEUROLOGICAL: Cranial nerves II-XII grossly intact. Motor is 5/5 in bilateral upper and lower extremities proximal to distal. No sensory deficits. HEENT: Face is symmetric. Pupils are equal and reactive. Extraocular movements are intact. NECK: Supple. No JVD. No thyromegaly. No submental, submandibular, pre-/po stauricular, occipital or supraclavicular lymphadenopathy. CHEST: Normal chest expansion. No Telemetry. LUNGS: Absence of any rales, rhonchi or any wheezing. CARDIOVASCULAR: Regular. S1 and S2 normal. No appreciable rubs, murmurs or gallops. ABDOMEN: left lower quadrant tenderness Soft and nondistended. There is no rebound, voluntary guarding, or rigidity. : Deferred. No Jones. EXTREMITIES: Non-edematous and not cyanotic. No clubbing. Good capillary refill. SKIN: No skin breakdown. Vital Signs (last 8hr) Date Time Temp Pulse Resp B/P (MAP) Pulse Ox O2 Delivery O2 Flow Rate FiO2 04/14/25 08:00 98.8 97 18 119/65 100 Room Air 04/14/25 04:00 98.1 84 18 113/64 100 Room Air LABS: Laboratory: Test 04/14/25 04:50 04/13/25 06:33 04/12/25 18:17 04/12/25 16:50 Range/Units White Blood Count 11.5 H 4.8-10.8 K/uL Red Blood Count 3.59 L 4.00-5.50 MIL/uL Hemoglobin 11.6 L 12.0-16.0 g/dL Hematocrit 34.2 L 36-48 % Mean Corpuscular Volume 95.3 79-99 fL Mean Corpuscular Hemoglobin 32.3 27.0-33.0 pg Mean Corpuscular Hemoglobin Concent 33.9 32.0-36.0 g/dL Red Cell Distribution Width 12.1 11.0-15.5 % Platelet Count 280 130-400 K/uL Mean Platelet Volume 10.9 H 7.5-10.5 fL Immature Granulocyte % (Auto) 0.4 0-1 % Neutrophils (%) (Auto) 67.1 40.0-77.0 % Lymphocytes (%) (Auto) 23.7 21.0-51.0 % Monocytes (%) (Auto) 7.1 3.0-13.0 % Eosinophils (%) (Auto) 1.4 0.0-8.0 % Basophils (%) (Auto) 0.3 0.0-5.0 % Neutrophils # (Auto) 7.7 1.8-7.7 K/uL Lymphocytes # (Auto) 2.7 1.0-4.8 K/uL Monocytes # (Auto) 0.8 0.1-1.0 K/uL Eosinophils # (Auto) 0.16 0.00-0.70 K/uL Basophils # (Auto) 0.03 0.00-0.20 K/uL Absolute Immature Granulocyte (auto 0.05 0-1 K/uL Nucleated Red Blood Cells 0.0 0.0-0.19 % Sodium Level 140 136-145 mmol/L Potassium Level 3.8 3.5-5.1 mmol/L Chloride Level 108 101-111 mmol/L Carbon Dioxide Level 23 21-32 mmol/L Blood Urea Nitrogen 6 L 7-18 mg/dL Creatinine 0.6 0.5-1.0 mg/dL Glomerular Filtration Rate Calc 119 >90 mL/min Random Glucose 87 70-105 mg/dL Hemoglobin A1c 4.9 4.0-6.0 % Estimated Average Glucose (eAG) 94 70-126 mg/dL Total Calcium 9.0 8.5-10.1 mg/dL Magnesium Level 2.10 1.80-2.40 mg/dL Total Bilirubin 0.7 0.2-1.0 mg/dL Aspartate Amino Transf (AST/SGOT) 45 H 10-37 U/L Alanine Aminotransferase (ALT/SGPT) 47 # 12-78 U/L Alkaline Phosphatase 86 50-136 U/L Total Protein 7.4 6.0-8.3 g/dL Albumin 3.3 L 3.5-5.0 g/dL Triglycerides Level 126 30-200 mg/dL Cholesterol Level 162 <200 mg/dL LDL Cholesterol 92 0-99 mg/dL HDL Cholesterol 48 35-85 mg/dL Thyroid Stimulating Hormone (TSH) 2.64 # 0.36-3.74 uIU/mL Erythrocyte Sedimentation Rate 56 H 0-20 MM/HR C-Reactive Protein, Quantitative 118.00 H 0.5-3.0 mg/L Procalcitonin < 0.05 L 0.05-0.5 ng/mL Urine Color LIGHT-YELLOW YELLOW Urine Appearance CLEAR CLEAR Urine pH 6.0 5.0-8.0 Urine Specific [place] 1.011 1.001-1.031 Urine Protein 10 H NEGATIVE mg/dL Urine Glucose (UA) NEGATIVE NEGATIVE mg/dL Urine Ketones 40 H NEGATIVE mg/dL Urine Occult Blood +- (TRACE) H NEGATIVE Urine Nitrate NEGATIVE NEGATIVE Urine Bilirubin NEGATIVE NEGATIVE mg/dL Urine Urobilinogen 0.2 0.2-1.0 mg/dL Urine Leukocyte Esterase NEGATIVE NEGATIVE Wyatt/uL Urine RBC 0-1 0-1 /HPF Urine WBC 0-1 0-1 /HPF Urine Squamous Epithelial Cells MOD 0-2 /HPF Urine Bacteria None None Seen /HPF Urine Opiates Screen NEGATIVE NEGATIVE Urine Barbiturates Screen NEGATIVE NEGATIVE Urine Phencyclidine Screen NEGATIVE NEGATIVE Urine Amphetamines Screen NEGATIVE NEGATIVE Urine Benzodiazepines Screen NEGATIVE NEGATIVE Urine Cocaine Screen NEGATIVE NEGATIVE Urine Marijuana (THC) Screen NEGATIVE NEGATIVE Lactic Acid Level 1.7 0.8-2.5 mmol/L Total Creatine Kinase 69 # 21-232 U/L Troponin I High Sensitivity < 4 L 4-50 ng/L Human Chorionic Gonadotropin, Quant 0 0-5 mIU/mL Current Medications Medications (Trade) Dose Ordered Sig/Chris Route PRN Reason Start Time Stop Time Status Last Admin Dose Admin Acetaminophen (TYLenol 325MG TAB) 650 mg Q6H PRN PO MILD PAIN (1-3) 04/14/25 00:30 05/14/25 00:29 Acetaminophen (TYLenol 500MG TAB) 500 mg ONCE PO 04/12/25 16:28 04/12/25 20:30 DC 04/12/25 17:05 500 MG Ceftriaxone Sodium 1 gm/ Sodium Chloride 50 ml @ 100 mls/hr Q24H IV 04/12/25 22:30 04/12/25 22:29 DC Ceftriaxone Sodium (ROCEphine 1G INJ) 1 gm DAILY IVPB 04/13/25 09:00 04/23/25 08:59 04/14/25 08:57 1 GM Ceftriaxone Sodium (ROCEphine 1G INJ) 1 gm ONCE IVPB 04/12/25 16:28 04/12/25 20:30 DC 04/12/25 17:05 1 GM Ketorolac Tromethamine (toRADol) 15 mg Q6H PRN IV MODERATE PAIN (4-6) 04/13/25 01:30 04/18/25 01:29 04/13/25 01:32 15 MG Magnesium Sulfate 50 ml @ 0 mls/hr PROTOCOL PRN IV low mag level 04/13/25 08:00 05/13/25 07:59 Metoprolol Tartrate (loprESSOR) 25 mg BID PO 04/13/25 21:00 05/13/25 20:59 04/14/25 08:57 25 MG Morphine Sulfate (morPHINE 2MG SYG) 2 mg ONCE STAT IVP 04/12/25 21:53 04/12/25 21:56 DC 04/12/25 22:15 2 MG Morphine Sulfate (morPHINE 2MG SYG) 2 mg Q4H PRN IV PAIN LEVEL 7 TO 10 04/12/25 22:30 04/19/25 22:29 Ondansetron HCl (zoFRAN 4MG INJ) 4 mg ONCE STAT IVP 04/12/25 21:53 04/12/25 21:56 DC 04/12/25 22:15 4 MG Ondansetron HCl (zoFRAN 4MG INJ) 4 mg Q6H PRN IV NAUSEA/VOMITING 04/12/25 22:30 05/12/25 22:29 Pantoprazole Sodium (PROTonix 40MG INJ) 40 mg DAILY IVP 04/13/25 09:00 05/13/25 08:59 04/14/25 08:57 40 MG Potassium Chloride 100 ml @ 50 mls/hr AD PRN IV POTASSIUM PROTOCOL 04/13/25 08:00 04/14/25 09:48 DC Potassium Chloride 100 ml @ 100 mls/hr AD PRN IV POTASSIUM PROTOCOL 04/13/25 08:00 05/13/25 07:59 Potassium Chloride (K-Dur/Klor-Con 20meq) 20 meq AD PRN PO POTASSIUM PROTOCOL 04/13/25 08:00 05/13/25 07:59 Potassium Chloride (KCl 10% Elixir 20meq/15ml) 20 meq AD PRN PO POTASSIUM PROTOCOL 04/13/25 08:00 05/13/25 07:59 04/13/25 18:24 20 MEQ Sodium Chloride 1,000 ml @ 100 mls/hr Q10H IV 04/12/25 22:30 05/12/25 22:29 04/14/25 03:12 100 MLS/HR Sodium Chloride 2,178 ml @ 726 mls/hr ONCE IV 04/12/25 16:30 04/13/25 16:29 DC 04/12/25 17:04 726 MLS/HR DIAGNOSTICS / RADIOLOGY: [ ] ASSESSMENT: SIRS with Organ dysfunction POA Intractable abdominal pain POA Obesity POA Bulky uterus with multiple fibroids evidenced by CT abdomen POA Tachycardia POA PLAN: Admit: medical Telemetry floor Diet: nothing by mouth IVF: 75 mL/hour normal saline Antibiotics: Rocephin 1 gram IV daily for empiric coverage: WBC trending down slowly T-max 99.9 microbiology: Urine culture no growth 6:36 p.m., blood culture times24 hours negative Protonix 40 mg IV daily for GI prophylaxis replace electrolyte as needed per protocol Tachycardia 2D echo, beta-hi metoprolol b.i.d. 25mg Pain management: Toradol as needed Disposition we will need a referral for overhead crane inspector upon discharge. Further recommendations to follow depending upon hospitalization course Case discussed with attending MD and came up with above treatment and plan of care ATTESTATION BY PHYSICIAN I have seen and examined the patient. I reviewed the documentation, medical decision making, and treatment plan as noted by the mid-level provider above. I agree with the findings and plan of care. AMY LAM MD, ELIZABETH NP Apr 14, 2025 10:08
[2025-04-14 12:00] VITALS: BP 108/69; PULSE 69; RESP 18; TEMP 98.2
--- NOTE | 2025-04-14 15:10 | HMCSR ---
APPROVED REPORT EXAM: Two-dimensional and M-mode echocardiogram with Doppler and color Doppler. INDICATION ICD: Tachycardia R00.0 2D Dimensions RVDd3.7 cmLVEF(%)64.0 (>50%)LVED Vol(simp.)103.0 mL IVSd0.7 (0.7-1.1cm)FS(%)35 %LVES Vol(simp.)50.0 mL LVDd4.7 (3.8-5.6cm)LA (2D)3.0 (1.6-4.0cm)LVEF(%, simp.)52 % PWd0.9 (0.7-1.1cm)Ao Root(2D)2.3 (2.0-3.7cm)LA ESV INDEX (BP)28.40 mL/m2 LVDs3.1 (2.5-4.0cm)LVOT diam2.0 (1.8-2.4cm) IVC diam1.8 cm Deformation Strain Apical 4-18.6 % Apical 2-16.3 % Apical 3-19.2 % Global Strain-18.0 % M-Mode Dimensions EPSS0.7 cm LA (MM)3.5 (1.6-4.0cm) Ao Root(MM)2.4 (2.0-3.7cm) Aortic Valve AoV Vmax1.7 m/Yeny Peak GR11.4 mmHgLVOT Vmax1.1 m/s AoV VTI0.3 mAo Mean GR5.9 mmHgLVOT VTI0.23 m SUZAN (VMAX)2.01 cm2AVA (VTI) 2.2 cm2 Mitral Valve MV E Iqxu682.8 cm/sDECEL Mebs650 ms MV A Vmax76.1 cm/sP 1/2 T68 ms E/A ratio1.3MVA (PHT)3.2 cm2 TDI E/E' Medial9.3E/E' Lateral7.4 Medial E' Peak V10.81 cm/sLateral E' Peak V13.60 cm/s Pulmonary Valve PV Vmax0.9 m/sPV VTI0.21 mPV Mean GR1.9 mmHg PV Peak GR3.5 mmHg Tricuspid Valve TR Vmax2.3 m/sRAP (EST) 3 sqPvIBRL92.7 mmHg TR Peak GR22.7 mmHg Left Ventricle The left ventricle is normal size. No regional wall motion abnormalities noted. There is normal left ventricular wall thickness. LVEF is 50-55%. The left ventricular diastolic function is normal. Right Ventricle The right ventricle is normal size. The right ventricular systolic function is normal. Atria The left atrium size is normal. The right atrium size is normal. Aortic Valve The aortic valve is normal in structure. No aortic regurgitation is present. There is no aortic valvu lar stenosis. Mitral Valve The mitral valve is normal in structure. Mitral regurgitation is trace. There is no mitral valve sten osis. Tricuspid Valve The tricuspid valve is normal in structure. There is mild tricuspid valve regurgitation noted. Pulmonic Valve The pulmonary valve is normal in structure. There is no pulmonic valvular regurgitation. Great Vessels The aortic root is normal in size. The IVC is normal in size and collapses >50% with inspiration. Pericardium There is no pericardial effusion. Conclusion The left ventricle is normal size. LVEF is 50-55%. The left ventricular diastolic function is normal. The right ventricle is normal size. The right ventricular systolic function is normal. The left atrium size is normal. The right atrium size is normal. There is mild tricuspid valve regurgitation noted. There is no pericardial effusion.
[2025-04-14 16:00] VITALS: BP 127/76; PULSE 78; RESP 18; TEMP 98.2
--- NOTE | 2025-04-14 17:49 | NUR ---
cm note met with pt and states lives with mother and 4 children, independent with adls/ambuation. no dme no home services. drives. provided pt with [employer] resource packet for md and meds assist clinics in the area. and good rx card. dc plan is home. states no other dc needs. Addendum: 04/14/25 at 1756 by BARBY HERZOG CM Amended: Links added.
[2025-04-14 19:00] VITALS: BP 123/70; PULSE 77; RESP 18; TEMP 98.9
[2025-04-15] VITALS: BP 125/76; PULSE 77; RESP 18; TEMP 98.8
[2025-04-15 04:00] VITALS: BP 129/77; PULSE 59; RESP 18; TEMP 97.9
[2025-04-15 07:39] VITALS: O2SAT 100
[2025-04-15 07:45] VITALS: BP 113/76; PULSE 69; RESP 18; TEMP 97.8
[2025-04-15] MEDS ORDERED: METO25TA6 PO (09:34)
[2025-04-15] MEDS ORDERED: CEFD300C3 PO (09:34)
--- NOTE | 2025-04-15 09:40 | DS ---
Discharge Summary Hospital Course Summary: This is a 34 year old female with no pertinent medical history who presents to the ED for complaints of left lower quadrant abdominal pain and pain radiates to the lower back which started 3 days ago.Patient reports she had a fever and chills yesterday T102.8 and has some nausea but no vomiting.Patient also reports blood in the urine .Her LMP &/$/2024 and it usually lasted for 7 days.Patient reports she has a normal bowel movement today.Patient reports this is the first time she experience this symptoms. 04/13/25 patient was seen she is fully awake alert oriented x3. patient continues with suprapubic abdominal pain. Waiting for CT scan we will have primary nurse to call radiology's to fax results. Patient becomes tachycardia when out of bed to chair she does have a history of tachycardia three years ago she had cardiac workup done. She denies chest pain shortness for breath palpitations. Troponin was negative. We will start her beta-hi Fax results reproductive bulky uterus with multiple fibroids no kidney stones no hydronephrosis no focal inflammatory process gallbladder appears within normal limits otherwise CT abdomen normal. Most likely she will need to follow-up with a construction secretary upon discharge. 04/14/2025. Patient was seen earlier patient is fully awake alert oriented x3. heart rate is well controlled now was started on beta-blockers. Urine cultures negative. Patient reports taking amoxicillin from home self medicated prior to this admission. Advised patient upon discharge she will need to follow-up with a construction secretary she verbalized understanding ruled out prediabetic A1c 4.6. Continues with IV antibiotics 04/15/2025 patient is hemodynamically stable for discharge. No fever no chills abdominal pain has resolved. I strongly advised patient she will need to finding PCP so she can can get a referral construction secretary. Reproductive bulky uterus with multiple fibroids. Patient will be discharged on [id number] mg and cef dinir 300 b.i.d. for five days addressed all concerns and questions. Custom Tailor(s): RUN DATE: 04/14/25 [facility] PAGE 1 RUN TIME: [id number] [address] Department of Laboratories [place] # [id number] Supervisor Heading: Grazyna Adan DO Specimen Report PATIENT: WEI MARIE ACCT: [id number] LOC: [facility] U: [id number] AGE/SX: 34/F ROOM: 305 RE04/12/[address]: GARY MENDOZA MD : 1990 BED: 1 DIS: STATUS: ADM IN TLOC: SPEC: [id number] JULIA: 04/12/25-170 STATUS: RES REQ: [id number] RECD: 04/12/25-[address] [facility] [address]: RADHA RODARTE NP SOURCE: BLOOD ENTR: 04/12/25-[address]: GABBY SPDESC: SELF,REFERRAL ORDERED: BLOOD CULTURE COMMENTS: What is the Source? BLOOD Procedure Result Gunnar Date-Time BLOOD CULT Preliminary 04/14/25-173 NO GROWTH AFTER 48 HOURS RUN DATE: 04/14/25 [facility] PAGE 1 RUN TIME: [phone] [address], [place] [address] Department of Laboratories CLIA # [id number] Supervisor Heading: Grazyna Adan DO Specimen Report PATIENT: WEI MARIE ACCT: [id number] LOC: [facility] U: [id number] AGE/SX: 34/F ROOM: 305 RE04/12/[address]: GARY MENDOZA MD : 1990 BED: 1 DIS: STATUS: ADM IN TLOC: SPEC: [id number] JULIA: 04/12/25-1649 STATUS: RES REQ: [id number] RECD: 04/12/25-[address]: RADHA RODARTE NP SOURCE: BLOOD ENTR: 04/12/25-1631 ESTELA BARAJAS: GABBY SPDC: SELF,REFERRAL ORDERED: BLOOD CULTURE COMMENTS: What is the Source? BLOOD Procedure Result Gunnar Date-Time BLOOD CULT Preliminary 04/14/25-1657 NO GROWTH AFTER 48 HOURS RUN DATE: 04/14/25 [facility] PAGE 1 RUN TIME: [phone] [address], [place] [address] Department of Laboratories CLIA # [id number] Supervisor Heading: Grazyna Adan DO Specimen Report PATIENT: WEI MARIE ACCT: [id number] LOC: [facility] U: [id number] AGE/SX: 34/F ROOM: 305 RE04/12/[address]: GARY MENDOZA MD : 1990 BED: 1 DIS: STATUS: ADM IN TLOC: SPEC: [id number] JULIA: 04/12/25-1816 STATUS: COMP REQ: [id number] RECD: 04/12/[address]: RADHA RODARTE NP SOURCE: URINE CC ENTR: 04/12/25-[address]: GABBY SPDESC: SELF,REFERRAL ORDERED: URINE CULTURE Procedure Result Gunnar Date-Time URINE CULTURE Final 04/14/25-581 REPORT URINE FINAL-NO GROWTH 36-48 HRS Procedure(s): Assessment/Plan: Discharged dx's; SIRS with Organ dysfunction POA Intractable abdominal pain POA resolved Obesity POA Bulky uterus with multiple fibroids evidenced by CT abdomen POA Tachycardia POA improved with metoprolol we will be discharged on [id number] mg p.o. daily PLAN: ADMISSION DATE: 04/12/2025 DISCHARGE DATE: 04/15/2025 DISPOSITION: Home CONDITION: Stable IT SERVICE MANAGER(S): None FOLLOW UP APPOINTMENT(S): PCP 2-3 days we will need to follow-up with a construction secretary referral PROCEDURES: None IMAGING (S) report attached to summary : CT abdomen pelvis echo MICROBIOLOGY: report attached to summary; blood cultures urine cultures ACTIVITY: Ad radu HOME MEDICATIONS none profile NEW MEDICATIONS cefdinir 300 mg p.o. b.i.d. for five days and metoprolol [id number] mg p.o. daily TEACHING: Advised to complete full cycle of antibiotics. Emergency instructions: The patient was instructed to present to the nearest Emergency Department or call 911 should their symptoms return or worsen. Discharge Instructions: REASON: Tachycardia ORDERING PHYSICIAN: BARBY CAMACHO NP PROCEDURE: ECHO CMP - ECHO 2-D COMPLETE APPROVED REPORT EXAM: Two-dimensional and M-mode echocardiogram with Doppler and color Doppler. INDICATION ICD: Tachycardia R00.0 2D Dimensions RVDd 3.7 cm LVEF(%) 64.0 (>50%) LVED Vol(simp.) 103.0 mL IVSd 0.7 (0.7-1.1cm) FS(%) 35 % LVES Vol(simp.) 50.0 mL LVDd 4.7 (3.8-5.6cm) LA (2D) 3.0 (1.6-4.0cm) LVEF(%, simp.) 52 % PWd 0.9 (0.7-1.1cm) Ao Root(2D) 2.3 (2.0-3.7cm) LA ESV INDEX (BP) 28.40 mL/m2 LVDs 3.1 (2.5-4.0cm) LVOT diam 2.0 (1.8-2.4cm) IVC diam 1.8 cm Deformation Strain Apical 4 -18.6 % Apical 2 -16.3 % Apical 3 -19.2 % Global Strain -18.0 % M-Mode Dimensions EPSS 0.7 cm LA (MM) 3.5 (1.6-4.0cm) Ao Root(MM) 2.4 (2.0-3.7cm) Aortic Valve AoV Vmax 1.7 m/s Ao Peak GR 11.4 mmHg LVOT Vmax 1.1 m/s AoV VTI 0.3 m Ao Mean GR 5.9 mmHg LVOT VTI 0.23 m SUZAN (VMAX) 2.01 cm2 SUZAN (VTI) 2.2 cm2 Mitral Valve MV E Vmax 100.8 cm/s DECEL Time 151 ms MV A Vmax 76.1 cm/s P 1/2 T 68 ms E/A ratio 1.3 MVA (PHT) 3.2 cm2 TDI E/E' Medial 9.3 E/E' Lateral 7.4 Medial E' Peak V 10.81 cm/s Lateral E' Peak V 13.60 cm/s Pulmonary Valve PV Vmax 0.9 m/s PV VTI 0.21 m PV Mean GR 1.9 mmHg PV Peak GR 3.5 mmHg Tricuspid Valve TR Vmax 2.3 m/s RAP (EST) 3 mmHg RVSP 25.7 mmHg TR Peak GR 22.7 mmHg Left Ventricle The left ventricle is normal size. No regional wall motion abnormalities noted. There is normal left ventricular wall thickness. LVEF is 50-55%. The left ventricular diastolic function is normal. Right Ventricle The right ventricle is normal size. The right ventricular systolic function is normal. Atria The left atrium size is normal. The right atrium size is normal. Aortic Valve The aortic valve is normal in structure. No aortic regurgitation is present. There is no aortic valvular stenosis. Mitral Valve The mitral valve is normal in structure. Mitral regurgitation is trace. There is no mitral valve stenosis. Tricuspid Valve The tricuspid valve is normal in structure. There is mild tricuspid valve regurgitation noted. Pulmonic Valve The pulmonary valve is normal in structure. There is no pulmonic valvular regurgitation. Great Vessels The aortic root is normal in size. The IVC is normal in size and collapses >50% with inspiration. Pericardium There is no pericardial effusion. Conclusion The left ventricle is normal size. LVEF is 50-55%. The left ventricular diastolic function is normal. The right ventricle is normal size. The right ventricular systolic function is normal. The left atrium size is normal. The right atrium size is normal. There is mild tricuspid valve regurgitation noted. There is no pericardial effusion. DICTATED BY: YEVGENIY DUNN MD DATE: 04/14/25 1036 Home Medications: Active Scripts Cefdinir (Cefdinir) 300 Mg Capsule, 1 CAP PO BID for 5 Days, #10 CAP 0 Refills Prov:BARBY CAMACHO NP 04/15/25 Metoprolol Tartrate (Metoprolol Tartrate) 25 Mg Tablet, 25 MG PO DAILY for 30 Days, #30 TAB Prov:BARBY CAMACHO NP 04/15/25 New Medications: Cefdinir (Cefdinir) 300 Mg Capsule 1 CAP PO BID for 5 Days, #10 CAP 0 Refills Metoprolol Tartrate (Metoprolol Tartrate) 25 Mg Tablet 25 MG PO DAILY for 30 Days, #30 TAB Time spent arranging discharge: 31-60 minutes ATTESTATION BY PHYSICIAN I have seen and examined the patient. I reviewed the documentation, medical decision making, and treatment plan as noted by the mid-level provider above. I agree with the findings and plan of care. NATALY MUNIZ MD, ELIZABETH NP Apr 15, 2025 09:40
[2025-04-15 09:46] LABS: IMMATURE GRANULOCYTE ABSOLUTE 0.04 K/uL (0-1); NUCLEATED RED BLOOD CELLS 0.0 % (0.0-0.19); PLATELET COUNT (AUTO) 314 K/uL (130-400); RED BLOOD CELL COUNT(AUTO) 3.52 MIL/uL (4.00-5.50); RED CELL DISTRIBUTION WIDTH 12.0 % (11.0-15.5); WHITE BLOOD COUNT (AUTO) 8.7 K/uL (4.8-10.8)
[2025-04-15 09:55] LABS: CREATININE 0.6 mg/dL (0.5-1.0); GLOMERULAR FILTR. RATE CALC 119.0 mL/min (>90); GLUCOSE,RANDOM 111.0 mg/dL (70-105); SODIUM SERUM 143.0 mmol/L (136-145); UREA NITROGEN, BLOOD 7.0 mg/dL (7-18)
[2025-04-15 09:59] LABS: ASPARTATE AMINOTRANSFERASE 32.0 U/L (10-37); TOTAL PROTEIN, SERUM 7.6 g/dL (6.0-8.3)
[2025-04-15 11:15] VITALS: BP 112/75; PULSE 66; RESP 18; TEMP 98.8
[2025-04-15] MEDS: PoTASSium chloRIDE 20MEQ ER 20 MEQ ERTAB PO PRN (12:02)
--- NOTE | 2025-04-15 12:11 | HMCIMG ---
EXAM: CT Abdomen and Pelvis Without IV contrast CLINICAL HISTORY: flank pain TECHNIQUE: Axial computed tomography images of the abdomen and pelvis without intravenous contrast. CONTRAST: No IV contrast. COMPARISON: None provided. FINDINGS: LUNG BASES: The lung bases appear clear. No pleural effusions are seen. LIVER: Fatty infiltrated liver GALLBLADDER AND BILE DUCTS: The gallbladder appears within normal limits. No radioopaque gallstones are seen. No biliary ductal dilatation is evident. PANCREAS: Unremarkable. SPLEEN: Unremarkable. ADRENAL GLANDS: Unremarkable. KIDNEYS, URETERS, AND BLADDER: No kidney stone or hydroureteronephrosis. STOMACH AND BOWEL: Unremarkable appearance of the stomach and bowel. No evidence of bowel obstruction. No evidence suggesting enteritis or colitis. APPENDIX: No evidence of acute appendicitis on CT examination. PERITONEUM: No free fluid. No free air. LYMPH NODES: No lymphadenopathy is evident. REPRODUCTIVE: Bulky uterus with multiple fibroids VASCULATURE: No evidence of abdominal aortic aneurysm. BONES: No aggressive appearing osseous lesion. No acute osseous pathology evident. MISCELLANEOUS: No focal inflammatory process IMPRESSION: 1. No kidney stone or hydroureteronephrosis. 2. No focal inflammatory process 3. Fatty infiltrated liver 4. Bulky uterus with multiple fibroids /[place]
--- NOTE | 2025-04-15 15:43 | NUR ---
DISCHARGE PERIPHERAL IV REMOVED FOR DISCHARGE DISCHARGE EDUCATION AND INSTRUCTIONS PROVIDED TO PATIENT PATIENT AWARE TO OBTAIN PCP AND TO OBTAIN REFERRAL WITH OBGYN PATIENT AWARE OF DISCHARGE MEDICATIONS AND TO MOLDING PRESS OPERATOR NEW PRESCRIPTIONS AT PREFERRED PHARMACY ALL QUESTIONS ANSWERED.
== END 2025-04-15 16:57 | disposition home or self-care (01) | DRG 760 ==
LOC: EDH 16:13 → EDHIP 16:14 → 3BH 23:30
PROVIDERS: ADMIT Hospitalist; ATTEND Hospitalist
DX: D25.9 Leiomyoma of uterus, unspecified (principal); R65.11 Systemic inflammatory response syndrome (SIRS) of non-infectious origin with acute organ dysfunction; I34.0 Nonrheumatic mitral (valve) insufficiency; E11.9 Type 2 diabetes mellitus without complications; E66.9 Obesity, unspecified; Z68.32 Body mass index [BMI] 32.0-32.9, adult
CPT/HCPCS: 36415; 74176; 80048; 80053; 80061; 80305; 81001; 82550; 83036; 83605; 83735; 84145; 84443; 84484; 84702; 85025; 85651; 86140; 87040; 87086; 93005; 93306; 93356; 96374; 99285; G0378; J0696; J1885; J2270; J2405; J2470; J3490; J7030